=== PATIENT | female | born 1985 ===

== ENCOUNTER 2023-06-04 11:48 | Inpatient (IN) | payer OTHER ==
[~2023-06-04] VITALS: Ht 152.4 cm; Wt 68.0 kg
[2023-06-07] MEDS ORDERED: SYNTHROID88 MCG PO (08:01)
[2023-06-11] MEDS ORDERED: SIMETHICONE80 MG PO (09:01)
[2023-06-11] MEDS ORDERED: PERCOCET 5-3251 EACH PO (09:01)
[2023-06-11] MEDS ORDERED: IBU800 MG PO (09:01)
[2023-06-11] MEDS ORDERED: COLACE100 MG PO (09:01)
== END 2023-06-11 14:32 | disposition home or self-care (01) | DRG 743 ==
LOC: O/R 06-10 06:12 → OB/GYN 06-10 07:45
PROVIDERS: ADMIT Student in an Organized Health Care Education/Training Program; ATTEND Student in an Organized Health Care Education/Training Program
PROC: 0UT74ZZ Resection of Bilateral Fallopian Tubes, Percutaneous Endoscopic Approach (ICD-10-PCS; 2023-06-10)
PROC: 0TJB8ZZ Inspection of Bladder, Via Natural or Artificial Opening Endoscopic (ICD-10-PCS; 2023-06-10)
PROC: 0UT94ZZ Resection of Uterus, Percutaneous Endoscopic Approach (ICD-10-PCS; principal; 2023-06-10 12:15)
DX: D25.1 Intramural leiomyoma of uterus (principal); Z20.822 Contact with and (suspected) exposure to COVID-19; N87.1 Moderate cervical dysplasia